=== PATIENT | female | born 1985 | race Caucasian/White ===

== ENCOUNTER 2018-11-10 14:39 | Emergency (ER) | payer MEDICAID ==
[~2018-11-10] VITALS: Ht 165.1 cm; Wt 70.8 kg
[2018-11-10 15:00] VITALS: BP 102/73
[2018-11-10] MEDS ORDERED: LIDOCAINE VISCOUS 2% UD 15 ML UDC ONE (15:14)
[2018-11-10] MEDS ORDERED: ACETAMINOPHEN ES 500 MG TABLET ONE (15:14)
[2018-11-10] MEDS ORDERED: ACETAMINOPHEN ES 500 MG TABLET PO ONE (15:30)
[2018-11-10] MEDS ORDERED: LIDOCAINE VISCOUS 2% UD 15 ML UDC MM ONE (15:30)
== END 2018-11-10 15:25 | disposition home or self-care (01) ==
LOC: ER 14:47
DX: J02.0 Streptococcal pharyngitis (principal)
CPT/HCPCS: 99283; A4606

== ENCOUNTER 2019-05-07 10:39 | Emergency (ER) | payer MEDICAID ==
[~2019-05-07] VITALS: Ht 165.1 cm; Wt 68.9 kg
[2019-05-07] MEDS ORDERED: IV NS 0.9% 1,000 ML BAG IV ONE (11:00)
[2019-05-07] MEDS ORDERED: KETOROLAC TROMETHAMINE INJ 30 MG/ML VIAL IV ONE (11:00)
--- NOTE | 2019-05-07 11:00 | NUR ---
PT BIB SELF C/O SHARP SEVERE LOWER BACK PAIN, SUDDEN ONSET LAST NIGHT WITHOUT TRAUMA. DENIES URINARY SYMPTOMS. RESP EVEN UNLABORED. SKIN WARM DRY. AMBULATORY WITH SLOW BUT STEADY GAIT.
[2019-05-07 11:08] LABS: APPEARANCE,URINE Clear (CLEAR); BILIRUBIN,URINE Negative (NEGATIVE); BLOOD, URINE Small Ery/uL (NEGATIVE); COLOR,URINE Yellow (YELLOW); KETONES,URINE Negative (NEGATIVE); LEUKOCYTE ESTERASE ,URINE Negative (NEGATIVE); NITRITE, URINE Negative (NEGATIVE); PH,URINE 6.5 (5.0-8.0); PROTEIN,URINE Negative (NEGATIVE); UGLUCOSE Negative (NEGATIVE); UROBILINOGEN,URINE 0.2 EU/dL (0.2)
[2019-05-07] MEDS ORDERED: KETOROLAC TROMETHAMINE 15 MG/ML VIAL ONE (11:08)
[2019-05-07 11:15] LABS: BASOPHILS # (AUTO) 0.1 /CMM (0.0-0.2); BASOPHILS % (AUTO) 0.9 % (0.0-2.0); EOSINOPHILS % (AUTO) 0.9 % (0.0-6.0); HEMATOCRIT 33 % (33-45); LYMPHOCYTES # (AUTO) 2.5 /CMM (0.8-4.8); LYMPHOCYTES % (AUTO) 34.2 % (20.0-44.0); MEAN CORPUSCULAR HGB CONC 34 g/dl (31.0-36.0); MEAN CORPUSCULAR VOLUME 93 fL (82-100); MONOCYTES # (AUTO) 0.7 /CMM (0.1-1.30); MONOCYTES % (AUTO) 9.3 % (2.0-12.0); NEUTROPHILS % (AUTO) 54.7 % (43.0-81.0); PLATELET COUNT (AUTO) 287 /CMM (150-450); RED BLOOD CELL COUNT(AUTO) 3.55 MIL/uL (4.0-5.2); WHITE BLOOD COUNT (AUTO) 7.2 K/uL (4.3-11.0)
[2019-05-07 11:19] LABS: BACTERIA,URINE Rare /HPF (None Seen); SQUAMOUS EPITHELIAL CELL,UR Rare /HPF (None Seen); WBC,URINE 0-2 /HPF (0-3)
[2019-05-07 11:24] LABS: CALCIUM, SERUM 8.8 mg/dL (8.5-10.1); CREATININE 0.7 mg/dL (0.6-1.3); POTASSIUM 3.9 mmol/L (3.5-5.1)
[2019-05-07 11:30] LABS: ALBUMIN 3.7 g/dL (3.4-5.0); BILIRUBIN,DIRECT 0.1 mg/dL (0.0-0.2); BILIRUBIN,TOTAL 0.4 mg/dL (0.2-1.0); TOTAL PROTEIN, SERUM 7.7 g/dL (6.4-8.2)
--- NOTE | 2019-05-07 12:15 | NUR ---
Patient discharged to home in stable condition. Written and verbal after care instructions given. Patient verbalizes understanding of instruction. IV removed. Catheter intact and site benign. Pressure and 4x4 applied to site. No bleeding noted. AMBULATORY STEADY GAIT
[2019-05-07 12:40] VITALS: BP 110/55
== END 2019-05-07 12:15 | disposition home or self-care (01) ==
LOC: ER 10:41
DX: R10.9 Unspecified abdominal pain (principal); Z60.2 Problems related to living alone
CPT/HCPCS: 36415; 80048; 80076; 81001; 83690; 84703; 85025; 87086; 96374; 99283; J1885; J7030; 81000-TC

== ENCOUNTER 2020-06-23 15:35 | Emergency (ER) | payer MEDICAID ==
[~2020-06-23] VITALS: Ht 165.1 cm; Wt 76.2 kg
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
--- NOTE | 2020-06-23 16:24 | NUR ---
dr last at bedside for eval.
[2020-06-23] MEDS ORDERED: ACETAMINOPHEN ES 500 MG TABLET ONE (16:31)
[2020-06-23] MEDS ORDERED: IBUPROFEN 600 MG TABLET ONE (16:31)
[2020-06-23] MEDS: ACETAMINOPHEN ES 500 MG TABLET PO ONE (16:33)
[2020-06-23] MEDS: IBUPROFEN 600 MG TABLET PO ONE (16:35)
--- NOTE | 2020-06-23 16:39 | NUR ---
radiology at bedside for chest and c spine xray.
[2020-06-23 17:26] VITALS: BP 112/76
--- NOTE | 2020-06-23 17:26 | NUR ---
Patient discharged to home in stable condition. Written and verbal after care instructions given. Patient verbalizes understanding of instruction.
== END 2020-06-23 17:26 | disposition home or self-care (01) ==
LOC: ER 15:42
DX: R07.89 Other chest pain (principal); R51.9 Headache, unspecified; M54.6 Pain in thoracic spine; M54.2 Cervicalgia; V49.49XA Driver injured in collision with other motor vehicles in traffic accident, initial encounter; Y93.89 Activity, other specified; Y92.488 Other paved roadways as the place of occurrence of the external cause; Y99.8 Other external cause status
CPT/HCPCS: 71045-TC; 72040-TC